=== PATIENT | male | born 1990 | race Caucasian/White ===

== ENCOUNTER 2019-12-10 12:29 | Emergency (ER) | payer BC ==
--- NOTE | 2019-12-10 13:50 | EDM.PDOC ---
ED HPI GENERAL MEDICAL PROBLEM - General Chief Complaint: Laceration Stated Complaint: STICHES ON LEFT HAND Time Seen by Provider: 12/10/19 13:50 Source of Information: Reports: Patient - History of Present Illness INITIAL COMMENTS - FREE TEXT/NARRATIVE: HISTORY AND PHYSICAL: History of present illness: [Patient presents with 2cm linear laceration on the left index dorsum use cutting the tip of a calking tube and cut himself with his pocket knife tendon function intact pre-and post suture neurovascularly intact wound bled well initially bleeding has resolved at this time] Review of systems: As per history of present illness and below otherwise all systems reviewed and negative. Past medical history: As per history of present illness and as reviewed below otherwise noncontributory. Surgical history: As per history of present illness and as reviewed below otherwise noncontributory. Social history: No reported history of drug or alcohol abuse. Family history: As per history of present illness and as reviewed below otherwise noncontributory. Physical exam: HEENT: Atraumatic, normocephalic, pupils reactive, negative for conjunctival pallor or scleral icterus, mucous membranes moist, throat clear, neck supple, nontender, trachea midline. Lungs: Clear to auscultation, breath sounds equal bilaterally, chest nontender. Heart: S1S2, regular, negative for clicks, rubs, or JVD. Abdomen: Soft, nondistended, nontender. Negative for masses or hepatosplenomegaly. Negative for costovertebral tenderness. Pelvis: Stable nontender. Genitourinary: Deferred. Rectal: Deferred. Extremities: Atraumatic, negative for cords or calf pain. Neurovascular unremarkable. Neuro: Awake, alert, oriented. Cranial nerves II through XII unremarkable. Cerebellum unremarkable. Motor and sensory unremarkable throughout. Exam nonfocal. skin as per HPI, tendon function intact pre-and post suture entire limb is neurovascularly intact Diagnostics: [] Therapeutics: [Status is up-to-date Lidocaine Wound cleansed and explored 3 interrupted 4-0 Prolene sutures, no complications no complaint Standard wound care instructions Sutures out 10 days Splint for healing and comfort keflex 500mg #20 no refill ] Impression: [Laceration] 2cm linear, simple Definitive disposition and diagnosis as appropriate pending reevaluation and review of above. left pointer finge Pain Score (Numeric/FACES): 1 - Related Data Allergies Allergy/AdvReac Type Severity Reaction Status Date / Time No Known Allergies Allergy Verified 12/10/19 12:46 Home Meds: Home Meds Montelukast [Singulair] 12/10/19 [History] Past Medical History - Past Health History Medical/Surgical History: Denies Medical/Surgical History Social & Family History - Family History Family Medical History: Noncontributory - Tobacco Use Smoking Status *Q: Never Smoker - Recreational Drug Use Recreational Drug Use: No ED ROS GENERAL - Review of Systems Review Of Systems: See Below ED EXAM, SKIN/RASH Exam: See Below Course - Vital Signs Last Recorded V/S: Last Vital Signs Temp 97.6 F 12/10/19 12:47 Pulse 82 12/10/19 12:47 Resp 16 12/10/19 12:47 BP 149/87 H 12/10/19 12:47 Pulse Ox 97 12/10/19 12:47 - Orders/Labs/Meds Meds: Medications Discontinued Medications Generic Name Dose Route Start Last Admin Trade Name Crescencio PRN Reason Stop Dose Admin Lidocaine HCl 5 ml 12/10/19 13:19 Xylocaine-Mpf 1% INJECT 12/10/19 13:20 ONETIME ONE Departure - Departure Time of Disposition: 13:55 Disposition: Home, Self-Care 01 Condition: Good Clinical Impression: Laceration - Discharge Information Referrals: Damien Correa MD [Primary Care Provider] - Forms: ED Department Discharge Additional Instructions: medication is prescribed Splint for comfort and healing Bacitracin dressing Wound care instruction Keep wound clean and dry for 48 hours Return if symptoms persist or worsen or if new concerning symptoms develop Sutures out in 10 days The following information is given to patients seen in the emergency department who are being discharged to home. This information is to outline your options for follow-up care. We provide all patients seen in our emergency department with a follow-up referral. The need for follow-up, as well as the timing and circumstances, are variable depending upon the specifics of your emergency department visit. If you don't have a primary care physician on staff, we will provide you with a referral. We always advise you to contact your personal physician following an emergency department visit to inform them of the circumstance of the visit and for follow-up with them and/or the need for any referrals to a consulting specialist. The emergency department will also refer you to a specialist when appropriate. This referral assures that you have the opportunity for follow-up care with a specialist. All of these measure are taken in an effort to provide you with optimal care, which includes your follow-up. Under all circumstances we always encourage you to contact your private physician who remains a resource for coordinating your care. When calling for follow-up care, please make the office aware that this follow-up is from your recent emergency room visit. If for any reason you are refused follow-up, please contact the [facility] emergency department at and asked to speak to the emergency department charge nurse. Sepsis Event Note - Evaluation Sepsis Screening Result: No Definite Risk - Focused Exam Vital Signs: Vital Signs Temp Pulse Resp BP Pulse Ox 12/10/19 12:47 97.6 F 82 16 149/87 H 97 Date Exam was Performed: 12/10/19 Time Exam was Performed: 13:51
[2019-12-10] MEDS ORDERED: Bacitracin Oint 1 GM U/D Packet TOP ONE (14:02)
== END 2019-12-10 14:15 | disposition home or self-care (01) ==
LOC: MW.ED 12:29
DX: S61.211A Laceration without foreign body of left index finger without damage to nail, initial encounter (principal); W26.0XXA Contact with knife, initial encounter
CPT/HCPCS: 12001; 99282; J2001

== ENCOUNTER 2024-07-21 00:39 | Emergency (ER) | payer BC ==
[2024-07-21] MEDS: Lidocaine 1% with EPINEPHrine 1:100,000 10 ML MDV INJECT ONE (00:58)
[2024-07-21] MEDS: Lidocaine 1% PF 2 ML SDV INJECT ONE (02:13)
== END 2024-07-21 02:36 | disposition home or self-care (01) ==
LOC: MW.ED 00:39
DX: S61.216A Laceration without foreign body of right little finger without damage to nail, initial encounter (principal); Z75.8 Other problems related to medical facilities and other health care; Z79.899 Other long term (current) drug therapy; W22.8XXA Striking against or struck by other objects, initial encounter
CPT/HCPCS: 12002; 73120-26-RT; 73120-RT; 99283; J3490